=== PATIENT | male | born 1965 | race Caucasian/White ===

== ENCOUNTER 2020-08-15 08:00 | Outpatient (CLI) | payer OTHER | END 2020-08-15 08:30 | disposition home or self-care (01) | LOC: LABBT 08:00 | PROVIDERS: ATTEND Surgery | DX: Z01.810 Encounter for preprocedural cardiovascular examination (principal) | CPT/HCPCS: 93005; 93010 ==

== ENCOUNTER 2020-08-22 07:03 | Outpatient (CLI) | payer SELFPAY ==
[2020-08-22 12:21] LABS: Anion Gap 11 mmol/L (10-20); BUN (Urea Nitrogen) 11 mg/dL (8.4-25.7); Calc. Creatinine Clearance 0 mL/min (70-130); Calcium 9.1 mg/dL (7.8-10.44); Carbon Dioxide 27 mmol/L (22-29); Chloride 103 mmol/L (98-107); Glucose 153 mg/dL (70-105); Hemoglobin 14.6 g/dL (14.0-18.0); Mean Corpuscular HGB CONC 32.9 G/DL (32.0-36.0); Mean Corpuscular Hemoglobin 34.5 PG (27.0-33.0); Mean Platelet Volume 12.8 fl (7.4-10.4); Platelet Count 79 10x3/uL (130-400); Potassium 4.4 mmol/L (3.5-5.1); RBC Distribution Width 13.4 % (11.5-14.5); Red Blood Cell (RBC) Count 4.23 10x6/uL (4.40-5.80); Sodium 137 mmol/L (136-145)
[2020-08-22 12:39] LABS: PTT 27.6 sec (22.0-33.0); Prothrombin Time 10.9 sec (9.5-12.1)
[2020-08-22 18:28] LABS: SARS-CoV-2 PCR by NAA Not Detected (NotDetected)
== END 2020-08-22 07:04 | disposition home or self-care (01) ==
LOC: LABBT 07:03
PROVIDERS: ATTEND Surgery
DX: Z01.818 Encounter for other preprocedural examination (principal); M51.16 Intervertebral disc disorders with radiculopathy, lumbar region; M48.061 Spinal stenosis, lumbar region without neurogenic claudication; Z20.822 Contact with and (suspected) exposure to COVID-19
CPT/HCPCS: 80048; 85027; 85610; 85730; 87635; U0003; U0005

== ENCOUNTER 2020-08-27 06:07 | Day surgery (SDC) | payer OTHER ==
[2020-08-27] MEDS ORDERED: Thrombin 5000 UNITS/5 ML VIAL ONE ×2 (06:25→08:07)
[2020-08-27] MEDS ORDERED: Fentanyl 100 MCG/2 ML VIAL ONE ×4 (06:44→12:38)
[2020-08-27] MEDS ORDERED: SUGAMMADEX SODIUM 500 MG/5 ML VIAL ONE (09:09)
[2020-08-27] MEDS ORDERED: Milk Of Magnesia 30 ML UDCUP PO PRN (09:53)
[2020-08-27] MEDS ORDERED: Bisacodyl 10 MG SUPP PR PRN (09:53)
[2020-08-27] MEDS ORDERED: Morphine 2 MG/ML VIAL SLOW IVP PRN (09:53)
[2020-08-27] MEDS ORDERED: Acetaminophen 325 MG TAB PO PRN (09:53)
[2020-08-27] MEDS ORDERED: Acetaminophen/Codeine 30-300mg Tablet PO PRN (09:53)
[2020-08-27] MEDS ORDERED: Ondansetron PF 4 MG/2 ML Vial IVP PRN (09:53)
[2020-08-27] MEDS ORDERED: traMADol HCl 50 MG TAB PO PRN (09:53)
[2020-08-27] MEDS ORDERED: Cyclobenzaprine 10 MG TAB PO PRN (09:57)
[2020-08-27] MEDS ORDERED: Lidocaine 1% PF 5 ML VIAL ONE (10:25)
[2020-08-27] MEDS ORDERED: PROPOFOL 200 MG/20 ML VIAL ONE (10:25)
[2020-08-27] MEDS ORDERED: Dexamethasone 20 MG/5 ML VIAL ONE (10:25)
[2020-08-27] MEDS ORDERED: Ondansetron PF 4 MG/2 ML Vial ONE (10:25)
[2020-08-27] MEDS ORDERED: Rocuronium Bromide 10 MG/ML (10ML VIAL) ONE (10:25)
[2020-08-27] MEDS ORDERED: hydrALAZINE 20 MG/ML VIAL SLOW IVP PRN (12:27)
[2020-08-27] MEDS ORDERED: Promethazine HCl 25 MG/ML VIAL SLOW IVP PRN (12:37)
[2020-08-27] MEDS ORDERED: PACU-Morphine 4MG/ML VIAL SLOW IVP PRN (12:37)
[2020-08-27] MEDS ORDERED: Morphine Sulfate 2 MG/ML SYRINGE SLOW IVP PRN (12:37)
[2020-08-27] MEDS ORDERED: Ondansetron HCl/PF 4 MG/2 ML Vial IVP PRN (12:37)
[2020-08-27] MEDS ORDERED: Promethazine HCl 25 MG/ML VIAL IM PRN (12:37)
[2020-08-27] MEDS ORDERED: HYDROmorphone 2 MG/ML VIAL SLOW IVP PRN (12:37)
--- NOTE | 2020-08-27 13:17 | OP ---
DATE OF PROCEDURE: 08/27/2020 CHILD WELFARE SOCIAL WORKER: Aissatou Davis PA-C PREPROCEDURE DIAGNOSIS: Low back and bilateral leg pain with lumbar stenosis. POSTPROCEDURE DIAGNOSIS: Low back and bilateral leg pain with lumbar stenosis. PROCEDURES PERFORMED: 1. L3-L4, L4-L5 laminectomy, partial facetectomy, foraminotomies. 2. Left L5-S1 hemilaminotomy, foraminotomy. DESCRIPTION OF PROCEDURE: After informed consent was obtained from the patient, the patient was brought to the OR. Proper patient, pause, and identification were carried out. He was placed under excellent general endotracheal anesthesia and positioned prone on the OR table. All appropriate points were padded. We identified the L3 through S1 dorsal spines. A linear surendra was made over this region. This area sterilely cleansed, prepared, and draped. Proper patient, pause, and identification were carried out. The wound was then opened with a combination of sharp, monopolar, and blunt dissection. The L3, L4, L5, S1 dorsal spines and lamina were exposed. Localization film confirmed area of interest. We then performed L3, L4, L5 laminectomies, partial facetectomies foraminotomies and left L5-S1 hemilaminotomy, foraminotomy with excellent decompression of common dural tube and nerve roots. Copious irrigation occurred throughout as did maximizing hemostasis. There was no spinal fluid leak. The wound was copiously irrigated and closed in anatomic layers. The patient emerged from anesthesia. Job ID: [id number]
[2020-08-27] MEDS: CEFAZOLIN 2 GM in Premix Bag 1 BAG IVPB SCH ×2 (15:33→23:54)
[2020-08-27] MEDS: Sodium Chloride 0.9% 1,000 ML IV SCH ×2 (15:33→23:54)
[2020-08-27] MEDS: HYDROcodone/Acetaminophen 7.5/325 mg Tablet PO PRN ×2 (15:49→23:53)
[2020-08-27 16:05] VITALS: BMI 50.8
[2020-08-28 07:49] LABS: Platelet Count 68 thou/uL (130-400)
[2020-08-28] MEDS ORDERED: FLU VACC QS2020-21(6MOS UP)/PF 60 MCG/0.5 ML SYRINGE IM ONE (09:00)
--- NOTE | 2020-08-28 09:41 | PRG ---
DATE OF SERVICE: 08/28/2020 Mr. Olivia is doing very well postoperative day #1 following multilevel lumbar decompression. His leg pain has resolved. He states the feeling is improved as well. He is already ambulating, tolerating orals and voiding on his own. His platelet count is down into the high 60s as it was preoperatively 79, and we gave him a 6-pack of platelets. We will give him 2 six-packs of platelets as I expected to drop a bit more otherwise. This will help to prevent epidural hematoma. He may be discharged afterward. Job ID: [id number]
--- NOTE | 2020-08-28 12:02 | PDOC.FMACP ---
Advance Care Planning - Problem (1) Lumbar stenosis Status: Acute Code(s): M48.061 - SPINAL STENOSIS, LUMBAR REGION WITHOUT NEUROGENIC LINDA (2) Low back pain Status: Acute Code(s): M54.5 - LOW BACK PAIN (3) Palliative care encounter Status: Acute Code(s): Z51.5 - ENCOUNTER FOR PALLIATIVE CARE - Note Participants: patient, palliative care Summary: Advanced Care Planning was discussed. The diagnosis, prognosis and goals of care were discussed. Appropriate forms and documentation to accomplish the goals of care were discussed. All questions were answered. MPOA document completed, original and copy provided to patient, copy also placed on chart for medical records. Directive to physician reviewed and left for patient Thank you for this very appropriate consult. Time Spent (mins): 15
[2020-08-28] MEDS: HYDROcodone/Acetaminophen 7.5/325 mg Tablet PO PRN (12:25)
[2020-08-28 14:00] VITALS: BP 118/68; TEMP 98.1
[2020-08-28] MEDS: Sodium Chloride 0.9% 1,000 ML IV SCH (14:18)
== END 2020-08-28 16:23 | disposition home or self-care (01) ==
LOC: SDC 06:07 → SURG A 09:53 → SDC 08-28 16:23
PROVIDERS: ATTEND Surgery
PROC: 01NB0ZZ Release Lumbar Nerve, Open Approach (ICD-10-PCS; principal; 2020-08-27)
DX: M51.16 Intervertebral disc disorders with radiculopathy, lumbar region (principal); M48.061 Spinal stenosis, lumbar region without neurogenic claudication; K76.0 Fatty (change of) liver, not elsewhere classified; F17.200 Nicotine dependence, unspecified, uncomplicated
CPT/HCPCS: 36415; 36430; 76000; 85049; 86850; 86900; 86901; 90471; 90662; G0008; J0690; J1100; J2405; J2704; J3010; J3370; P9035

== ENCOUNTER 2021-08-14 16:03 | Outpatient (CLI) | payer BC ==
[2021-08-14 17:59] LABS: Hemoglobin 12.1 g/dL (13.5-17.5); Mean Corpuscular HGB CONC 31.6 g/dL (32.0-36.0); Mean Corpuscular Hemoglobin 32.3 pg (27.0-33.0); Mean Corpuscular Volume 102.1 fl (81.2-95.1); Platelet Count 68 10x3/uL (150-450); RBC Distribution Width 14.1 % (11.5-14.5); Red Blood Cell (RBC) Count 3.75 10x6/uL (4.32-5.72); White Blood Cell (WBC) Count 3.6 10x3/uL (3.5-10.5)
[2021-08-14 18:11] LABS: PTT 26.2 sec (22.0-33.0); Prothrombin Time 10.9 sec (9.5-12.1)
[2021-08-14 18:12] LABS: Anion Gap 12 mmol/L (10-20); BUN (Urea Nitrogen) 9 mg/dL (8.4-25.7); Calc. Creatinine Clearance 0 mL/min (70-130); Calcium 8.3 mg/dL (7.8-10.44); Carbon Dioxide 28 mmol/L (22-29); Chloride 106 mmol/L (98-107); Glucose 184 mg/dL (70-105); Sodium 142 mmol/L (136-145)
[2021-08-15 19:22] LABS: SARS-CoV-2 PCR by NAA DETECTED (NotDetected)
== END 2021-08-14 16:04 | disposition home or self-care (01) ==
LOC: LABBT 16:03
PROVIDERS: ATTEND Surgery
DX: U07.1 COVID-19 (principal); Z01.818 Encounter for other preprocedural examination
CPT/HCPCS: 80048; 85027; 85610; 85730; 93005; 93010; U0003; U0005

== ENCOUNTER 2021-08-18 05:57 | Day surgery (SDC) | payer BC ==
[2021-08-14 09:14] VITALS: BMI 53.0
[2021-08-18] MEDS ORDERED: Bacitracin Zinc Ointment 30 gm TUBE ONE (06:29)
[2021-08-18] MEDS ORDERED: Xylocaine 1% w/ Epi 1:100K 10 ML VIAL ONE (06:29)
[2021-08-18] MEDS ORDERED: Methylene Blue 50 MG/10 ML AMPUL ONE (06:29)
[2021-08-18] MEDS ORDERED: Bupivacaine PF 0.5% 30 ML VIAL ONE (06:29)
[2021-08-18] MEDS ORDERED: Fentanyl 100 MCG/2 ML VIAL ONE ×2 (07:13→09:42)
[2021-08-18] MEDS ORDERED: Ketorolac Tromethamine 30 MG/ML VIAL ONE (07:20)
[2021-08-18] MEDS ORDERED: Ondansetron PF 4 MG/2 ML Vial ONE (07:20)
[2021-08-18] MEDS ORDERED: Rocuronium Bromide 10 MG/ML (10ML VIAL) ONE (07:20)
[2021-08-18] MEDS ORDERED: Glycopyrrolate 0.2 MG/ML 5 ML SYRINGE ONE (07:20)
[2021-08-18] MEDS ORDERED: PROPOFOL 200 MG/20 ML VIAL ONE (07:20)
[2021-08-18] MEDS ORDERED: Dexamethasone 20 MG/5 ML VIAL ONE (07:20)
[2021-08-18] MEDS ORDERED: ceFAZolin 2 GM/Dextrose 50 ML IVPB ONE (07:26)
[2021-08-18] MEDS ORDERED: Silver Nitrate Application 1 EACH ONE (08:14)
[2021-08-18] MEDS ORDERED: Silver Sulfadiazine 50 GM JAR TP SCH (08:30)
[2021-08-18] MEDS ORDERED: Ondansetron HCl/PF 4 MG/2 ML Vial IVP PRN (09:40)
[2021-08-18] MEDS ORDERED: Promethazine HCl 25 MG/ML VIAL IM PRN (09:40)
[2021-08-18] MEDS ORDERED: Promethazine HCl 25 MG/ML VIAL IVPB PRN (09:40)
[2021-08-18] MEDS ORDERED: HYDROcodone/Acetaminophen 5/325 mg Tablet ONE (11:13)
== END 2021-08-18 11:55 | disposition home or self-care (01) ==
LOC: SDC 05:57
PROVIDERS: ATTEND Surgery
PROC: 0H5 Skin and Breast, Destruction (ICD-10-PCS; principal; 2021-08-18)
PROC: 0H59XZD Destruction of Perineum Skin, Multiple, External Approach (ICD-10-PCS; principal; 2021-08-18)
DX: A63.0 Anogenital (venereal) warts (principal); F17.210 Nicotine dependence, cigarettes, uncomplicated; E66.01 Morbid (severe) obesity due to excess calories; Z68.43 Body mass index [BMI] 50.0-59.9, adult
CPT/HCPCS: 88305; J0690; J1100; J1885; J2405; J2704; J3010; Q9968; S0020

== ENCOUNTER 2022-10-26 10:11 | Outpatient (CLI) | payer OTHER | END 2022-10-26 10:12 | disposition home or self-care (01) | LOC: DTY/OP 10:11 | PROVIDERS: ATTEND Surgery | DX: E66.01 Morbid (severe) obesity due to excess calories (principal) | CPT/HCPCS: 97802 ==